=== PATIENT | male | born 1970 | race Caucasian/White ===

== ENCOUNTER 2020-04-04 10:25 | Emergency (ER) | payer BC ==
--- NOTE | 2020-04-04 10:29 | EDM.PDOC ---
ED HPI GENERAL MEDICAL PROBLEM - General Chief Complaint: Skin Complaint Stated Complaint: LACERATION TO TOE Time Seen by Provider: 04/04/20 10:29 Source of Information: Reports: Patient History Limitations: Reports: No Limitations - History of Present Illness INITIAL COMMENTS - FREE TEXT/NARRATIVE: Gilberto states that last night while ambulating in his house struck a heating reg ister in the floor of the home. Due to his peripheral neuropathy he did not notice anything until he got into the bathroom and saw bleeding occurring. He denies any significant pain which is likely attributed to his history of neuropathy. Has applied dressing which had top the bleeding while he was in bed last night. This morning when getting up for work and showering the increase in distal pressure started persistent oozing, realizing that he needed to have that sutured. He denies any other contributing factors, is up-to-date on his tetanus status, and is here for suture repair of his laceration. Onset Date: 04/03/20 Onset Time: 21:00 Duration: Hour(s): Location: Reports: Lower Extremity, Left Quality: Reports: Burning Severity: Moderate Improves with: Reports: Rest Worsens with: Reports: Movement Context: Reports: Activity Associated Symptoms: Reports: No Other Symptoms Treatments [employer]: Reports: Dressing(s) - Related Data Allergies Allergy/AdvReac Type Severity Reaction Status Date / Time No Known Drug Allergies Allergy Cannot Verified 04/04/20 10:34 Remember Home Meds: Home Meds Gabapentin [Neurontin] 600 mg PO BID 04/14/15 [History] Labetalol HCl [Labetalol] 150 mg PO BID 04/14/15 [History] Lisinopril 20 mg PO DAILY 04/14/15 [History] PARoxetine [Paxil] 40 mg PO DAILY 04/14/15 [History] allopurinoL [Allopurinol] 300 mg PO DAILY 04/14/15 [History] Past Medical History Other HEENT History: past hx of welding tran Cardiovascular History: Reports: High Cholesterol, Hypertension Respiratory History: Reports: None Neurological History: Reports: Neuropathy, Peripheral Other Neuro History: 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 Psychiatric History: Reports: Anxiety Hematologic History: Reports: None Social & Family History - Family History Family Medical History: Noncontributory - Tobacco Use Smoking Status *Q: Former Smoker Tobacco Use Within Last Twelve Months: No - Tobacco Core Measures Tobacco Use/Smoking Within Last 30 Days: No - Caffeine Use Caffeine Use: Reports: Tea (1 AM, 1 PM) - Alcohol Use Alcohol Use History: Yes Alcohol Use in Last Twelve Months: Yes Alcohol Use Frequency: Daily Alcohol Use Comment: 5 or 6 beers daily - Recreational Drug Use Recreational Drug Type: Reports: Marijuana/Hashish Recreational Drug Use Frequency: Daily Recreational Drug Route: Reports: Inhaled ED ROS GENERAL - Review of Systems Review Of Systems: Comprehensive ROS is negative, except as noted in HPI. ED EXAM, GENERAL - Physical Exam Exam: See Below Free Text/Narrative:: Alert oriented mildly anxious, in no distress. HEENT is negative discharge or deformity. Thorax is clear no wheezes no crackles Cardiac is regular S1-S2. Radial pulse correlates with apical heart rate. Focused examination of the left lower extremity showing a laceration to centimeters in length between the metatarsal tarsal joint and tarsal joint, with mild oozing of blood. It is cut into the tissue with no evidence of debris. Margins are somewhat jagged stating he thinks it is from a register on the floor of his home. Chronic peripheral neuropathy is consistent with previous, he is able to feel touch pressure but not fine touch to the base of the foot nor the toes. Capillary refill is less than 2 seconds. ED GENERAL MEDICAL PROCEDURES - Laceration/Wound Repair Left Medial Toe - Great Lac/wound length in cm: 2.0 Appearance: Subcutaneous Distal NVT: No Tendon Injury Anesthetic Type: Local Local Anesthesia - Lidocaine (Xylocaine): 2% Plain Local Anesthetic Volume: 2cc Skin Prep: Providone-Iodine (Betadine) Exploration/Debridement/Repair: Wound Explored, Explored to Base, No Foreign Material Found Closed with: Sutures Suture Size: 4-0 # of Sutures: 5 Suture Type: Nylon, Interrupted Sterile Dressing Applied: Provider Tetanus Status Addressed: Yes (Up-to-date 2014) Complications: No Course - Vital Signs Last Recorded V/S: Last Vital Signs Temp 35.7 C L 04/04/20 10:30 Pulse 78 04/04/20 10:30 Resp 18 04/04/20 10:30 BP 162/106 H 04/04/20 11:00 Pulse Ox 97 04/04/20 10:30 - Orders/Labs/Meds Meds: Medications Discontinued Medications Generic Name Dose Route Start Last Admin Trade Name Freq PRN Reason Stop Dose Admin Bacitracin 0.9 gm 04/04/20 10:35 04/04/20 10:56 Bacitracin Oint TOP 04/04/20 10:36 0.9 gm NOW STA Administration Lidocaine 5 ml 04/04/20 10:34 04/04/20 10:43 Xylocaine-Mpf 2% INJECT 04/04/20 10:35 5 ml ONETIME ONE Administration Departure - Departure Time of Disposition: 11:06 Disposition: Home, Self-Care 01 Condition: Good Clinical Impression: Laceration of toe of left foot, Suture of skin wound - Discharge Information *PRESCRIPTION DRUG MONITORING PROGRAM REVIEWED*: Not Applicable *COPY OF PRESCRIPTION DRUG MONITORING REPORT IN PATIENT [place]: Not Applicable Instructions: Laceration Care, Adult, Sutured Wound Care, [id number] Referrals: Tiffanie Beauchamp MD [Primary Care Provider] - Forms: ED Department Discharge Additional Instructions: Keep clean and dry changing dressing if becoming soiled. Also change dressing on a daily basis. Do not soak, or subject to water for prolonged period. May bathe/shower or use sponge bath to the foot. Suture removal in 10 days at the clinic of your choice, or you may return here to the [facility] calling for suture removal appointment. Continue your medications as directed. Follow-up with clinic on your blood pressure readings. The injury you are here for today likely contributes to your blood pressure being elevated. 5 sutures were placed today. Sepsis Event Note (ED) - Focused Exam Vital Signs: Vital Signs Temp Pulse Resp BP Pulse Ox 04/04/20 11:00 162/106 H 04/04/20 10:30 35.7 C L 78 18 167/107 H 97 - Problem List & Annotations (1) Laceration of toe of left foot SNOMED Code(s): 96482456018711934 Code(s): S91.119A - LACERATION W/O FB OF UNSP TOE W/O DAMAGE TO NAIL, INIT Status: Acute Priority: High Current Visit: Yes Qualifiers: Encounter type: initial encounter Toe: great toe Damage to nail status: without damage Foreign body presence: without foreign body Qualified Code(s): S91.112A - Laceration without foreign body of left great toe without damage to nail, initial encounter (2) Suture of skin wound SNOMED Code(s): 458130815, 508344317 Code(s): T14.8XXA - OTHER INJURY OF UNSPECIFIED BODY REGION, INITIAL ENCOUNTER Status: Acute Current Visit: Yes (3) Neuropathy SNOMED Code(s): 955977273 Code(s): G62.9 - POLYNEUROPATHY, UNSPECIFIED Status: Chronic Priority: Medium Current Visit: Yes - Problem List Review Problem List Initiated/Reviewed/Updated: Yes - Assessment/Plan Plan: Keep clean and dry changing dressing if becoming soiled. Also change dressing on a daily basis. Do not soak, or subject to water for prolonged period. May bathe/shower or use sponge bath to the foot. Suture removal in 10 days at the clinic of your choice, or you may return here to the [facility] calling for suture removal appointment. Continue your medications as directed. Follow-up with clinic on your blood pressure readings. The injury you are here for today likely contributes to your blood pressure being elevated. 5 sutures were placed today.
[2020-04-04 10:34] VITALS: PULSE 78
[2020-04-04] MEDS ORDERED: Lidocaine 2% 5 ML SDV INJECT ONE (10:34)
[2020-04-04] MEDS ORDERED: Bacitracin Oint 30 GM Tube TOP STA (10:35)
[2020-04-04 11:00] VITALS: BP 162/106
== END 2020-04-04 11:10 | disposition home or self-care (01) ==
LOC: KA.ED 10:25
DX: S91.112A Laceration without foreign body of left great toe without damage to nail, initial encounter (principal); I10 Essential (primary) hypertension; F41.9 Anxiety disorder, unspecified; Z87.891 Personal history of nicotine dependence; Z79.899 Other long term (current) drug therapy; W22.8XXA Striking against or struck by other objects, initial encounter; Y92.009 Unspecified place in unspecified non-institutional (private) residence as the place of occurrence of the external cause
CPT/HCPCS: 12001; 99282; 99283; A9270-GY; J2001

== ENCOUNTER 2023-07-14 04:25 | Emergency (ER) | payer BC, MEDICARE ==
[2023-07-14 08:37] VITALS: BP 118/78; PULSE 79
== END 2023-07-14 05:58 | disposition home or self-care (01) ==
LOC: KA.ED 04:25 → SUPCPDRO 04:25 → KA.ED 05:58
DX: L03.115 Cellulitis of right lower limb (principal); I10 Essential (primary) hypertension; Z79.82 Long term (current) use of aspirin; Z79.899 Other long term (current) drug therapy
CPT/HCPCS: 99283; A9270-GY

== ENCOUNTER 2024-05-01 11:07 | Inpatient (IN) | payer MEDICARE ==
[2024-05-01] MEDS ORDERED: Sodium Chloride 0.9% 10 ML Syringe FLUSH PRN (11:30)
[2024-05-01 11:47] LABS: BASOPHILS ABSOLUTE AUTO 0.05 10^3/uL (0.00-0.10); BASOPHILS PERCENT AUTO 0.5 % (0.0-1.0); EOSINOPHILS ABSOLUTE AUTO 0.66 10^3/uL (0.10-0.30); EOSINOPHILS PERCENT AUTO 6.5 % (1.0-3.0); HEMATOCRIT 32.7 % (40.0-52.0); IMMATURE GRAN ABSOLUTE AUTO 0.04 10^3/uL (0.00-0.50); IMMATURE GRAN PERCENT AUTO 0.4 % (0.0-5.0); LYMPHOCYTES ABSOLUTE AUTO 1.77 10^3/uL (1.00-4.00); LYMPHOCYTES PERCENT AUTO 17.5 % (20.0-40.0); MEAN CORPUSCULAR HEMOGLOBIN 27.6 pg (27.0-31.0); MEAN CORPUSCULAR HGB CONC 30.6 g/dL (32.0-36.0); MEAN CORPUSCULAR VOLUME 90.3 fL (82.0-92.0); MEAN PLATELET VOLUME 8.4 fL (7.4-10.4); MONOCYTES ABSOLUTE AUTO 0.88 10^3/uL (0.10-0.80); MONOCYTES PERCENT AUTO 8.7 % (2.0-8.0); NEUTROPHILS ABSOLUTE AUTO 6.74 10^3/uL (2.50-7.00); NEUTROPHILS PERCENT AUTO 66.4 % (50.0-70.0); PLATELET COUNT,PLT 510 10^3/uL (150-400); RED BLOOD CELL COUNT 3.62 10^6/uL (4.50-6.00); RED CELL DISTRIBUTION WIDTH 15.1 % (11.5-14.5); WHITE BLOOD CELL COUNT,WBC 10.14 10^3/uL (5.00-10.00)
[2024-05-01] MEDS: Sodium Chloride 0.9% 1,000 ML IV ONE (11:59)
[2024-05-01 12:07] LABS: ALANINE AMINOTRANSFERASE,ALT 10 U/L (14-63); ALBUMIN 2.56 g/dL (3.40-5.00); ALKALINE PHOSPHATASE 86 U/L (46-116); ANION GAP 12.7 mmol/L (5-15); BILIRUBIN TOTAL 0.2 mg/dL (0.2-1.0); BLOOD UREA NITROGEN,BUN 7 mg/dL (7-18); CALCIUM 9.5 mg/dL (8.7-10.3); CARBON DIOXIDE,CO2 29.2 mmol/L (21.0-32.0); CHLORIDE,CL 104 mmol/L (98-107); CREATININE 0.56 mg/dL (0.51-1.17); GLUCOSE RANDOM 104 mg/dL (70-140); POTASSIUM,K 3.9 mmol/L (3.5-5.1); PROTEIN TOTAL,TP 7.8 g/dL (6.4-8.2); SODIUM,NA 142 mmol/L (136-145)
[2024-05-01 12:08] LABS: ASPARTATE AMNIOTRANSFERASE,AST < 9 U/L (15-37); ESTIMATED GFR 117 mL/min (>=60)
[2024-05-01 12:09] LABS: LACTIC ACID 1.9 mmol/L (0.4-2.0)
[2024-05-01 13:37] LABS: APPEARANCE,URINE CLEAR (CLEAR); BILIRUBIN,URINE NEGATIVE (NEGATIVE); COLOR,URINE YELLOW (YELLOW); GLUCOSE,URINE NEGATIVE (NEGATIVE); KETONES,URINE NEGATIVE (NEGATIVE); LEUKOCYTE ESTERASE,URINE NEGATIVE (NEGATIVE); NITRITE,URINE NEGATIVE (NEGATIVE); OCCULT BLOOD,URINE NEGATIVE (NEGATIVE); PROTEIN,URINE NEGATIVE (NEGATIVE); UROBILINOGEN,URINE 0.2 E.U./dL (0.2-1.0)
[2024-05-01] MEDS ORDERED: Ondansetron 4 MG/2 ML SDV IV PRN (16:50)
[2024-05-01] MEDS: DAPTOmycin 500 MG Vial IV SCH (18:15)
[2024-05-01] MEDS: Gabapentin 300 MG Cap PO SCH (21:07)
[2024-05-01] MEDS: Acetaminophen/HYDROcodone 325-5 MG Tab PO PRN (21:08)
[2024-05-01] MEDS: Labetalol 100 MG Tab PO SCH (21:09)
[2024-05-01] MEDS: Cyclobenzaprine 5 MG Tab PO PRN (21:09)
[2024-05-01] MEDS: OLANZapine 5 MG Tab PO SCH (21:09)
[2024-05-01] MEDS: Divalproex Sodium Delayed-Release 250 MG Tab.CR PO SCH (21:10)
[2024-05-01] MEDS ORDERED: [UNRECOGNIZED DRUG - OTHER] NASBOTH PRN (22:45)
[2024-05-02 07:13] LABS: HEMOGLOBIN 9.3 g/dL (13.0-17.0); MEAN CORPUSCULAR HEMOGLOBIN 27.9 pg (27.0-31.0); MEAN CORPUSCULAR VOLUME 90.1 fL (82.0-92.0); MEAN PLATELET VOLUME 8.6 fL (7.4-10.4); PLATELET COUNT,PLT 506 10^3/uL (150-400); RED BLOOD CELL COUNT 3.33 10^6/uL (4.50-6.00); RED CELL DISTRIBUTION WIDTH 15.3 % (11.5-14.5); WHITE BLOOD CELL COUNT,WBC 6.54 10^3/uL (5.00-10.00)
[2024-05-02 07:38] LABS: ALBUMIN 2.25 g/dL (3.40-5.00); ANION GAP 10.4 mmol/L (5-15); BILIRUBIN TOTAL 0.1 mg/dL (0.2-1.0); CALCIUM 9.2 mg/dL (8.7-10.3); CARBON DIOXIDE,CO2 30.4 mmol/L (21.0-32.0); CREATININE 0.56 mg/dL (0.51-1.17); EST CRCL DRUG DOSING (CG) 185.14 mL/min; MAGNESIUM 1.8 mg/dL (1.8-2.4); POTASSIUM,K 3.8 mmol/L (3.5-5.1)
[2024-05-02] MEDS: Furosemide 40 MG/4 ML VIAL IVPUSH SCH (09:21)
[2024-05-02] MEDS: Thiamine 100 MG Tab PO SCH (09:21)
[2024-05-02] MEDS: atorvaSTATin 10 MG Tab PO SCH (09:22)
[2024-05-02] MEDS: Enoxaparin 40 MG/0.4 ML Syringe SUBCUT SCH (17:59)
[2024-05-04] MEDS: Enoxaparin 40 MG/0.4 ML Syringe SUBCUT SCH (21:11)
[2024-05-05] MEDS: Furosemide 20 MG Tab PO SCH (08:37)
[2024-05-05] MEDS ORDERED: Sodium Chloride 0.9% 10 ML Syringe FLUSH PRN (21:30)
[2024-05-06] MEDS ORDERED: Bisacodyl 5 MG Tab PO PRN (05:17)
[2024-05-06] MEDS: DAPTOmycin 500 MG Vial IV SCH (12:02)
[2024-05-06 13:38] VITALS: BP 123/90; PULSE 96
== END 2024-05-06 13:12 | disposition home or self-care (01) | DRG 948 ==
LOC: KA.ED 11:07 → KA.MS 14:06 → UNDOADMIN 14:22 → KA.MS 14:22
PROVIDERS: ADMIT Internal Medicine; ATTEND Internal Medicine
DX: R53.1 Weakness (principal); M46.20 Osteomyelitis of vertebra, site unspecified; G72.81 Critical illness myopathy; R53.81 Other malaise; E78.00 Pure hypercholesterolemia, unspecified; I10 Essential (primary) hypertension; G62.9 Polyneuropathy, unspecified; M19.90 Unspecified osteoarthritis, unspecified site; G89.29 Other chronic pain; M10.9 Gout, unspecified; E66.9 Obesity, unspecified; F41.1 Generalized anxiety disorder; F32.A Depression, unspecified; R60.0 Localized edema; D72.829 Elevated white blood cell count, unspecified; Z87.891 Personal history of nicotine dependence; Z79.82 Long term (current) use of aspirin; Z98.890 Other specified postprocedural states; Z79.899 Other long term (current) drug therapy; Z68.31 Body mass index [BMI] 31.0-31.9, adult
CPT/HCPCS: 36415; 70450; 71045; 80053; 81003; 82550; 83605; 83735; 83880; 84484; 85025; 85027; 85652; 87040; 93010; 96360; 99284; 99285-25; A6212; A9270-GY; J0878; J1650; J1940; J7030; Q3014

== ENCOUNTER 2024-06-24 23:44 | Emergency (ER) | payer MEDICARE ==
[2024-06-24] MEDS: Sodium Chloride 0.9% 10 ML Syringe FLUSH PRN (23:50)
[2024-06-24] MEDS: LORazepam 2 MG/ML SDV IVPUSH ONE (23:54)
[2024-06-25] MEDS: Sodium Chloride 0.9% 1,000 ML IV ONE (00:19)
[2024-06-25 00:20] LABS: BASOPHILS ABSOLUTE AUTO 0.02 10^3/uL (0.00-0.10); BASOPHILS PERCENT AUTO 0.2 % (0.0-1.0); EOSINOPHILS ABSOLUTE AUTO 0.15 10^3/uL (0.10-0.30); EOSINOPHILS PERCENT AUTO 1.4 % (1.0-3.0); HEMATOCRIT 39.1 % (40.0-52.0); HEMOGLOBIN 12.6 g/dL (13.0-17.0); IMMATURE GRAN ABSOLUTE AUTO 0.02 10^3/uL (0.00-0.50); IMMATURE GRAN PERCENT AUTO 0.2 % (0.0-5.0); LYMPHOCYTES ABSOLUTE AUTO 1.84 10^3/uL (1.00-4.00); MEAN CORPUSCULAR HGB CONC 32.2 g/dL (32.0-36.0); MEAN CORPUSCULAR VOLUME 86.9 fL (82.0-92.0); MEAN PLATELET VOLUME 9.2 fL (7.4-10.4); MONOCYTES ABSOLUTE AUTO 0.83 10^3/uL (0.10-0.80); MONOCYTES PERCENT AUTO 7.6 % (2.0-8.0); NEUTROPHILS ABSOLUTE AUTO 7.99 10^3/uL (2.50-7.00); NEUTROPHILS PERCENT AUTO 73.6 % (50.0-70.0); PLATELET COUNT,PLT 371 10^3/uL (150-400); RED CELL DISTRIBUTION WIDTH 16.8 % (11.5-14.5); WHITE BLOOD CELL COUNT,WBC 10.85 10^3/uL (5.00-10.00)
[2024-06-25] MEDS: LORazepam 2 MG/ML SDV IVPUSH ONE (00:31)
[2024-06-25] MEDS: LORazepam 2 MG/ML SDV ONE (00:32)
[2024-06-25 00:35] LABS: ALBUMIN 3.62 g/dL (3.40-5.00); ANION GAP 20.2 mmol/L (5-15); BILIRUBIN TOTAL 0.2 mg/dL (0.2-1.0); CALCIUM 9.1 mg/dL (8.7-10.3); CARBON DIOXIDE,CO2 23.1 mmol/L (21.0-32.0); CREATININE 0.86 mg/dL (0.51-1.17); POTASSIUM,K 4.3 mmol/L (3.5-5.1); PROTEIN TOTAL,TP 7.6 g/dL (6.4-8.2)
[2024-06-25 03:44] VITALS: BP 128/76; PULSE 81
== END 2024-06-25 01:38 | disposition home or self-care (01) ==
LOC: KA.ED 23:44
DX: F41.0 Panic disorder [episodic paroxysmal anxiety] (principal); F14.90 Cocaine use, unspecified, uncomplicated; I10 Essential (primary) hypertension; E78.00 Pure hypercholesterolemia, unspecified; E66.9 Obesity, unspecified; Z79.899 Other long term (current) drug therapy; Z68.34 Body mass index [BMI] 34.0-34.9, adult
CPT/HCPCS: 80053; 84484; 85025; 96361; 96374; 96376; 99285; J2060; J7030; J3490

== ENCOUNTER 2024-06-27 20:00 | Emergency (ER) | payer MEDICARE ==
[2024-06-27] MEDS: LORazepam 2 MG/ML SDV IVPUSH ONE (20:10)
[2024-06-27 21:07] VITALS: BP 125/84; PULSE 68
[2024-06-29] MEDS: LORazepam 2 MG/ML SDV ONE (11:50)
== END 2024-06-27 21:26 | disposition home or self-care (01) ==
LOC: KA.ED 20:00
DX: F41.0 Panic disorder [episodic paroxysmal anxiety] (principal); I10 Essential (primary) hypertension; E78.00 Pure hypercholesterolemia, unspecified; K21.9 Gastro-esophageal reflux disease without esophagitis; E66.9 Obesity, unspecified; Z79.899 Other long term (current) drug therapy; Z68.34 Body mass index [BMI] 34.0-34.9, adult
CPT/HCPCS: 93005; 96374; 99283-25; J2060

== ENCOUNTER 2025-01-31 19:55 | Emergency (ER) | payer MEDICARE, OTHER ==
[2025-01-31] MEDS: LORazepam 2 MG/ML SDV IVPUSH ONE (20:25)
[2025-01-31] MEDS: Alum Hydrox/Mag Hydrox/Simeth 30 ML, Lidocaine 2% 15 ML PO ONE (20:27)
[2025-01-31] MEDS: diphenhydrAMINE 50 MG/ML SDV IVPUSH ONE (20:28)
[2025-01-31 20:45] LABS: BASOPHILS ABSOLUTE AUTO 0.02 10^3/uL (0.00-0.10); BASOPHILS PERCENT AUTO 0.2 % (0.0-1.0); EOSINOPHILS ABSOLUTE AUTO 0.11 10^3/uL (0.10-0.30); EOSINOPHILS PERCENT AUTO 1.1 % (1.0-3.0); HEMATOCRIT 35.6 % (40.0-52.0); IMMATURE GRAN ABSOLUTE AUTO 0.05 10^3/uL (0.00-0.04); IMMATURE GRAN PERCENT AUTO 0.5 % (0.0-0.4); LYMPHOCYTES ABSOLUTE AUTO 1.39 10^3/uL (1.00-4.00); LYMPHOCYTES PERCENT AUTO 13.4 % (20.0-40.0); MEAN CORPUSCULAR HEMOGLOBIN 31.8 pg (27.0-31.0); MEAN CORPUSCULAR HGB CONC 33.7 g/dL (32.0-36.0); MEAN CORPUSCULAR VOLUME 94.4 fL (82.0-92.0); MEAN PLATELET VOLUME 8.8 fL (7.4-10.4); MONOCYTES ABSOLUTE AUTO 1.08 10^3/uL (0.10-0.80); MONOCYTES PERCENT AUTO 10.4 % (2.0-8.0); NEUTROPHILS ABSOLUTE AUTO 7.69 10^3/uL (2.50-7.00); NEUTROPHILS PERCENT AUTO 74.4 % (50.0-70.0); PLATELET COUNT,PLT 290 10^3/uL (150-400); RED BLOOD CELL COUNT 3.77 10^6/uL (4.50-6.00); RED CELL DISTRIBUTION WIDTH 15.4 % (11.5-14.5); WHITE BLOOD CELL COUNT,WBC 10.34 10^3/uL (5.00-10.00)
[2025-01-31 21:03] LABS: ALBUMIN 3.47 g/dL (3.40-5.00); ANION GAP 13.3 mmol/L (5-15); BILIRUBIN TOTAL 0.3 mg/dL (0.2-1.0); CALCIUM 9.8 mg/dL (8.7-10.3); CARBON DIOXIDE,CO2 26.7 mmol/L (21.0-32.0); CREATININE 0.81 mg/dL (0.51-1.17); EST CRCL DRUG DOSING (CG) 126.51 mL/min
[2025-01-31 21:22] VITALS: BP 123/90; PULSE 93
== END 2025-01-31 21:37 | disposition home or self-care (01) ==
LOC: KA.ED 19:55
DX: F41.0 Panic disorder [episodic paroxysmal anxiety] (principal); E87.1 Hypo-osmolality and hyponatremia; I10 Essential (primary) hypertension; K30 Functional dyspepsia; E78.00 Pure hypercholesterolemia, unspecified; K21.9 Gastro-esophageal reflux disease without esophagitis; E66.9 Obesity, unspecified; Z79.899 Other long term (current) drug therapy; Z68.34 Body mass index [BMI] 34.0-34.9, adult
CPT/HCPCS: 36415; 71045; 80053; 84484; 85025; 93005; 96374; 96375; 99284-25; A9270-GY; J1200; J2060

== ENCOUNTER 2025-03-12 09:40 | Emergency (ER) | payer MEDICARE, OTHER ==
[2025-03-12] MEDS ORDERED: Sodium Chloride 0.9% 10 ML Syringe FLUSH PRN (10:15)
[2025-03-12 10:29] LABS: BASOPHILS ABSOLUTE AUTO 0.04 10^3/uL (0.00-0.10); BASOPHILS PERCENT AUTO 0.6 % (0.0-1.0); EOSINOPHILS PERCENT AUTO 1.4 % (1.0-3.0); HEMATOCRIT 35.3 % (40.0-52.0); HEMOGLOBIN 11.9 g/dL (13.0-17.0); IMMATURE GRAN ABSOLUTE AUTO 0.01 10^3/uL (0.00-0.04); IMMATURE GRAN PERCENT AUTO 0.1 % (0.0-0.4); LYMPHOCYTES ABSOLUTE AUTO 1.65 10^3/uL (1.00-4.00); LYMPHOCYTES PERCENT AUTO 23.7 % (20.0-40.0); MEAN CORPUSCULAR HEMOGLOBIN 32.7 pg (27.0-31.0); MEAN CORPUSCULAR HGB CONC 33.7 g/dL (32.0-36.0); MEAN PLATELET VOLUME 8.6 fL (7.4-10.4); NEUTROPHILS ABSOLUTE AUTO 4.47 10^3/uL (2.50-7.00); NEUTROPHILS PERCENT AUTO 64.2 % (50.0-70.0); PLATELET COUNT,PLT 283 10^3/uL (150-400); RED BLOOD CELL COUNT 3.64 10^6/uL (4.50-6.00); RED CELL DISTRIBUTION WIDTH 13.9 % (11.5-14.5); WHITE BLOOD CELL COUNT,WBC 6.97 10^3/uL (5.00-10.00)
[2025-03-12] MEDS: Sodium Chloride 0.9% 1,000 ML IV ONE (10:29)
[2025-03-12 10:48] LABS: B-TYPE NATRIURETIC PEPTIDE,BNP 19 pg/mL (0-100)
[2025-03-12 10:51] LABS: ALANINE AMINOTRANSFERASE,ALT 21 U/L (14-63); ALBUMIN 3.67 g/dL (3.40-5.00); ALKALINE PHOSPHATASE 58 U/L (46-116); ANION GAP 14.4 mmol/L (5-15); ASPARTATE AMNIOTRANSFERASE,AST 14 U/L (15-37); BILIRUBIN TOTAL 0.6 mg/dL (0.2-1.0); BLOOD UREA NITROGEN,BUN 9 mg/dL (7-18); CALCIUM 8.7 mg/dL (8.7-10.3); CARBON DIOXIDE,CO2 26.4 mmol/L (21.0-32.0); CHLORIDE,CL 94 mmol/L (98-107); CREATININE 0.77 mg/dL (0.51-1.17); GLUCOSE RANDOM 91 mg/dL (70-140); POTASSIUM,K 3.8 mmol/L (3.5-5.1); PROTEIN TOTAL,TP 6.8 g/dL (6.4-8.2); SODIUM,NA 131 mmol/L (136-145)
[2025-03-12 10:53] LABS: C-REACTIVE PROTEIN < 0.50 mg/dL (0.00-0.50); ESTIMATED GFR 106 mL/min (>=60)
[2025-03-12 11:45] VITALS: PULSE 72
[2025-03-12] MEDS: LORazepam 2 MG/ML SDV IVPUSH ONE (12:03)
[2025-03-12] MEDS: Iopamidol 755 Mg/ML 100 ML Bottle IV ONE (12:08)
[2025-03-12] MEDS: Sodium Chloride 0.9% 100 ML IV SCH (12:08)
[2025-03-12 13:36] VITALS: BP 138/82
== END 2025-03-12 13:30 | disposition home or self-care (01) ==
LOC: KA.ED 09:45
DX: I10 Essential (primary) hypertension (principal); G47.00 Insomnia, unspecified; F41.9 Anxiety disorder, unspecified; E78.00 Pure hypercholesterolemia, unspecified; K21.9 Gastro-esophageal reflux disease without esophagitis; Z79.899 Other long term (current) drug therapy
CPT/HCPCS: 36415; 71275; 80053; 83880; 84484; 85025; 85379; 85730; 86140; 96374; 99284-25; J2060; J7030; Q9967

== ENCOUNTER 2025-03-12 16:18 | Emergency (ER) | payer MEDICARE, OTHER ==
[2025-03-12] MEDS: Bacitracin/Neomycin/Polymyxin B Oint 0.9 GM U/D Packet TOP ONE (16:48)
[2025-03-12 17:00] VITALS: BP 114/78; PULSE 91
== END 2025-03-12 17:00 | disposition home or self-care (01) ==
LOC: KA.ED 16:18
DX: S51.811A Laceration without foreign body of right forearm, initial encounter (principal); I10 Essential (primary) hypertension; E78.00 Pure hypercholesterolemia, unspecified; K21.9 Gastro-esophageal reflux disease without esophagitis; Z79.899 Other long term (current) drug therapy; W01.198A Fall on same level from slipping, tripping and stumbling with subsequent striking against other object, initial encounter; Y93.89 Activity, other specified
CPT/HCPCS: 10120; 73070-RT; 99283-25

== ENCOUNTER 2025-03-13 23:00 | Emergency (ER) | payer MEDICARE, OTHER ==
[2025-03-13] MEDS: LORazepam 2 MG/ML SDV IVPUSH ONE (23:34)
[2025-03-13 23:51] VITALS: BP 135/86; PULSE 83
== END 2025-03-14 00:01 | disposition home or self-care (01) ==
LOC: KA.ED 23:00
DX: F41.0 Panic disorder [episodic paroxysmal anxiety] (principal); I10 Essential (primary) hypertension; E78.00 Pure hypercholesterolemia, unspecified; E66.9 Obesity, unspecified; M19.90 Unspecified osteoarthritis, unspecified site; Z79.899 Other long term (current) drug therapy; Z68.34 Body mass index [BMI] 34.0-34.9, adult
CPT/HCPCS: 96374; 99283-25; 99284; J2060